=== PATIENT | female | born 1980 | race Asian ===

== ENCOUNTER 2018-10-05 08:17 | Outpatient (CLI) | payer OTHER ==
--- NOTE | 2018-10-05 08:50 | RAD ---
EXAM: Chest PA and lateral: HISTORY: Positive PPD COMPARISON: None FINDINGS: Heart size:Within normal limits. Lungs:Clear of acute process. No confluent pneumonia, overt edema, pleural effusion, or other acute process. No evidence for active TB. IMPRESSION: No significant acute intrathoracic disease.
== END 2018-10-05 08:18 | disposition home or self-care (01) ==
LOC: RAD 08:17
PROVIDERS: ATTEND Family Medicine
DX: R76.11 Nonspecific reaction to tuberculin skin test without active tuberculosis (principal)
CPT/HCPCS: 71046